=== PATIENT | male | born 1985 | race African-American/Black ===

== ENCOUNTER 2020-08-04 09:52 | Emergency (ER) | payer OTHER ==
[2020-08-04 10:01] VITALS: BP 143/92; PULSE 93; TEMP 98.3; BMI 35.5
--- NOTE | 2020-08-04 10:15 | PDOC ---
History of Present Illness - General Chief Complaint: Blood Sugar Problem Stated Complaint: RASH Time Seen by Provider: 08/04/20 10:15 Past History - Medical History Allergies/Adverse Reactions: Allergies Allergy/AdvReac Type Severity Reaction Status Date / Time No Known Allergies Allergy Verified 08/04/20 09:55 COPD: No - Psycho-Social/Smoking History Smoking History: Never smoked - Substance Abuse Hx (Audit-C & DAST Scrn) How often the patient has a drink containing alcohol: Never Score: In Men: 4 or > Positive; In Women: 3 or > Positive: 0 Screen Result (Pos requires Nsg. Audit-10AR): Negative In the last yr the pt used illegal drug/Rx for NonMed reason: No Score: Yes response is considered Positive: 0 Screen Result (Positive result requires Nsg. DAST-10): Negative *Physical Exam - Vital Signs Last Vital Signs Temp Pulse Resp BP Pulse Ox 98.3 F 93 H 18 143/92 98 08/04/20 09:56 08/04/20 09:56 08/04/20 09:56 08/04/20 09:56 08/04/20 09:56
[2020-08-04] MEDS ORDERED: SODIUM CHLORIDE 1,000 ML IV STA (10:17)
--- NOTE | 2020-08-04 10:29 | PDOC ---
History of Present Illness - General Chief Complaint: Blood Sugar Problem Stated Complaint: RASH Time Seen by Provider: 08/04/20 10:15 - History of Present Illness Initial Comments: 35 YOM no significant medical history presenting with groin rash since 2 days. Patient reports he has had multiple instances of same rash over last few years. Has treated with lotrimin with varying success. Rash is primarily on inner thighs and penis, urethra/ tip of penis feel tight. Patient presented to urgent care for these symptoms this AM, had BG performed to 400s, presented to ED for eval. Reports increased thirst and frequency of urination for past weeks. Denies cp,sob, n/v/d, abdominal pain, fever or chills. Constitutional: No Weight Change, No Fever, No Chills, No Night Sweats, No Fatigue, No Malaise ENT/Mouth: No Hearing Changes, No Ear Pain, No Nasal Congestion, No Sinus Pain, No Hoarseness, No sore throat, No Rhinorrhea, No Swallowing Difficulty Eyes: No Eye Pain, No Swelling, No Redness, No Foreign Body, No Discharge, No Vision Changes Cardiovascular: No Chest Pain, No SOB, No PND, No Dyspnea on Exertion, No Orthopnea, No Claudication, No Edema, No Palpitations Respiratory: No Cough, No Sputum, No Wheezing, No Smoke Exposure, No Dyspnea Gastrointestinal: No Nausea, No Vomiting, No Diarrhea, No Constipation, No Pain, No Heartburn, No Anorexia, No Dysphagia, No Hematochezia, No Melena, No Flatulence, No Jaundice Genitourinary: No Dysmenorrhea, No DUB, No Dyspareunia, No Dysuria, + Urinary Frequency, No Hematuria, No Urinary Incontinence, No Urgency, No Flank Pain, No Urinary Flow Changes, No Hesitancy Musculoskeletal: No Arthralgias, No Myalgias, No Joint Swelling, No Joint Stiffness, No Back Pain, No Neck Pain, No Injury History Skin: No Skin Lesions, No Pruritis, No Hair Changes, No Breast/Skin Changes, No Nipple Discharge Neuro: No Weakness, No Numbness, No Paresthesias, No Loss of Consciousness, No Syncope, No Dizziness, No Headache, No Coordination Changes, No Recent Falls Psych: No Anxiety/Panic, No Depression, No Insomnia, No Personality Changes, No Delusions, No Rumination, No SI/HI/AH/VH, No Social Issues, No Memory Changes, No Violence/Abuse Hx., No Eating Concerns Heme/Lymph: No Bruising, No Bleeding, No Transfusions History, No Lymphadenopathy Endocrine: No Polyuria, No Polydipsia, No Temperature Intolerance Past History - Medical History Allergies/Adverse Reactions: Allergies Allergy/AdvReac Type Severity Reaction Status Date / Time No Known Allergies Allergy Verified 08/04/20 09:55 Home Medications: Ambulatory Orders Clotrimazole 1 applic TP BID #1 bottle 08/04/20 Doxycycline Monohydrate [Mondoxyne Nl] 100 mg PO BID 7 Days #13 capsule 08/04/20 metFORMIN HCL [Glucophage -] 500 mg PO BID #14 tablet 08/04/20 COPD: No - Psycho-Social/Smoking History Smoking History: Never smoked - Substance Abuse Hx (Audit-C & DAST Scrn) How often the patient has a drink containing alcohol: Never Score: In Men: 4 or > Positive; In Women: 3 or > Positive: 0 Screen Result (Pos requires Nsg. Audit-10AR): Negative In the last yr the pt used illegal drug/Rx for NonMed reason: No Score: Yes response is considered Positive: 0 Screen Result (Positive result requires Nsg. DAST-10): Negative *Physical Exam - Vital Signs Last Vital Signs Temp Pulse Resp BP Pulse Ox 98.3 F 93 H 18 143/92 98 08/04/20 09:56 08/04/20 09:56 08/04/20 09:56 08/04/20 09:56 08/04/20 09:56 ED Treatment Course - LABORATORY CBC & Chemistry Diagram: 08/04/20 10:05 08/04/20 10:05 Medical Decision Making - Medical Decision Making 35 YOM with skin rash and bs in 400s - vitals wnl - exam reveals darkening of skin in groin bilaterally - will do cbc, cmp, beta hydroxy butyrate, ua, cxr, ekg reassess - labs and imaging wnl - will dc patient to home with abx, metformin, and antifungal - to follow up at PCP Discharge - Discharge Information Problems reviewed: Yes Clinical Impression/Diagnosis: Fungal infection Condition: Good Disposition: HOME - Admission No - Additional Discharge Information Prescriptions: Clotrimazole 1 applic TP BID #1 bottle metFORMIN HCL [Glucophage -] 500 mg PO BID #14 tablet Doxycycline Monohydrate [Mondoxyne Nl] 100 mg PO BID 7 Days #13 capsule - Follow up/Referral Referrals: [facility] [place] [facility] at [place] [Provider Group] - Patient Discharge Instructions Additional Instructions: You were seen in the hospital for a rash in the context of elevated blood sugar. You received labs and imaging both of which were unremarkable. Please follow up with your [facility] regarding your visit to the ER. If you experience chest pain, shortness of breath, vomiting, fever or chills or change in mental status please return to the ER. - Post Discharge Activity
[2020-08-04 11:14] LABS: PH,URINE 5.5 (5.0-8.0); URINE APPEARANCE CLEAR; URINE BILIRUBIN NEGATIVE (NEGATIVE); URINE COLOR YELLOW; URINE GLUCOSE (UA) 3+ (NEGATIVE); URINE KETONE 1+ (NEGATIVE); URINE LEUK ESTERASE NEGATIVE (NEGATIVE); URINE NITRITE NEGATIVE (NEGATIVE); URINE PROTEIN NEGATIVE (NEGATIVE); URINE UROBILINOGEN 0.2 mg/dL (0.2-1.0)
[2020-08-04 11:22] LABS: VENOUS BASE EXCESS -1.1 mmol/L (-2-2); VENOUS O2 SATURATION 46.8 % (70-80); VENOUS PCO2 49.7 mmHg (38-52); VENOUS PH 7.329 (7.310-7.410)
[2020-08-04 11:38] LABS: INR 1.02 (0.83-1.09)
[2020-08-04 11:40] LABS: ACTIVATED PTT 32.3 SECONDS (25.2-36.5)
[2020-08-04 11:56] LABS: BASO % 0.9 % (0-2.0); EOS % 4.5 % (0-4.5); HEMATOCRIT 42.5 % (35.4-49); HEMOGLOBIN 14.6 GM/dL (11.7-16.9); LYMPH % 32.6 % (8-40); MCH 28.8 pg (25.7-33.7); MCHC 34.3 g/dl (32.0-35.9); MEAN CELL VOLUME 83.8 fl (80-96); MEAN PLT VOLUME 8.7 fl (7.5-11.1); MONO % 6.7 % (3.8-10.2); NEUT % 55.3 % (42.8-82.8); PLATELET COUNT 281 K/MM3 (134-434); RBC 5.06 M/mm3 (4.00-5.60); RDW 13.3 % (11.9-15.9); WHITE BLOOD COUNT 4.8 K/mm3 (4.0-10.0)
[2020-08-04 11:57] LABS: ALBUMIN 4.4 g/dl (3.4-5.0); ALK PHOS 94 U/L (45-117); ANION GAP 7 MMOL/L (8-16); BLOOD UREA NITROGEN 15.2 mg/dL (7-18); CALCIUM 9.7 mg/dL (8.5-10.1); CHLORIDE 102 mmol/L (98-107); CO2 27 mmol/L (21-32); CREATININE 1.2 mg/dL (0.55-1.3); GLUCOSE,RANDOM 359 mg/dL (74-106); POTASSIUM 4.2 mmol/L (3.5-5.1); SGOT/AST 34 U/L (15-37); SGPT/ALT 53 U/L (13-61); SODIUM 137 mmol/L (136-145); TOT PROT 8.5 g/dl (6.4-8.2)
[2020-08-04] MEDS ORDERED: DOXYCYCLINE HYCLATE 100 MG CAPSULE PO ONE ×2 (12:37→13:17)
--- NOTE | 2020-08-04 12:48 | PDOC ---
Documentation entered by Nahun Hines SCRIBE, acting as scribe for Nestor Montanez MD. Nestor Montanez MD: This documentation has been prepared by the alexaibeDonny Alexis, SCRIBE, under my direction and personally reviewed by me in its entirety. I confirm that the documentation accurately reflects all work, treatment, procedures, and medical decision making performed by me. Attending Attestation - Resident Resident Name: RemingtonMikal hamilton - ED Attending Attestation I have performed the following: I have examined & evaluated the patient, The case was reviewed & discussed with the resident, I agree w/resident's findings & plan, Exceptions are as noted - HPI HPI: 08/04/20 11:07 The patient is a 35 year old male with no significant past medical history who presents to the emergency department, sent from Urgent Care, for evaluation of a blood glucose in the 400s that was discovered this morning at Urgent Care. The patient reports a rash on his inner thighs and penis associated with tightness of the urethra and tip of penis, which prompted his presentation to Urgent Care. He endorses increased urinary frequency and increased thirst that began a few weeks ago. The patient notes using Lotrimin to minimal relief. The patient endorses a history of similar symptoms. The patient denies chest/abdominal/back pain, cough, and shortness of breath. Denies fever, chills, nausea, vomiting, and/or any GI symptoms. Denies any other symptoms. Allergies: NKA Social Hx: None reported Surgical Hx: None reported PCP: Dr. Green - Physicial Exam PE: 08/04/20 10:26 Vitals: Triage vital signs reviewed General Appearance: No acute distress, well nourished, well developed Head: Atraumatic Eyes: Pupils equal reactive round, extraocular movement intact Cardiac: Regular rate and rhythm, no murmurs, no rubs, no gallops Lungs: Clear to auscultation bilateral, good air movement bilaterally Abdomen: Soft, nondistended, normal bowel sounds, nontender to palpation Extremities: Full range of motion to all extremities, no cyanosis, clubbing, or edema Skin: Slight rash to bilateral inner thighs no extension to perineum testicles groin Psych: Normal mood, normal affect - Medical Decision Making 08/04/20 12:47 Patient 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 Sent to the ED today because urgent care did a fingerstick which demonstrated elevated glucose level No fever no white count no anion gap non-DKA well-appearing no apparent distress low suspicion for Elizabeth's gangrene no free air on bedside ultrasound We will treat with doxycycline antifungal cream patient started on metformin arrange for patient to follow-up in our clinic this week Findings, need for follow-up and strict return instructions discussed with patient. Discharge - Discharge Information Problems reviewed: Yes Clinical Impression/Diagnosis: Fungal infection Condition: Good Disposition: HOME - Additional Discharge Information Prescriptions: Clotrimazole 1 applic TP BID #1 bottle metFORMIN HCL [Glucophage -] 500 mg PO BID #14 tablet Doxycycline Monohydrate [Mondoxyne Nl] 100 mg PO BID 7 Days #13 capsule - Follow up/Referral Referrals: [facility] [place] [facility] at [place] [Provider Group] - Patient Discharge Instructions Additional Instructions: You were seen in the hospital for a rash in the context of elevated blood sugar. You received labs and imaging both of which were unremarkable. Please follow up with your [facility] regarding your visit to the ER. If you experience chest pain, shortness of breath, vomiting, fever or chills or change in mental status please return to the ER. - Post Discharge Activity
--- NOTE | 2020-08-04 16:55 | EKG ---
Test Reason : Blood Pressure : / mmHG Vent. Rate : 087 BPM Atrial Rate : 087 BPM P-R Int : 170 ms QRS Dur : 092 ms QT Int : 362 ms P-R-T Axes : 057 043 022 degrees QTc Int : 435 ms NORMAL SINUS RHYTHM POSSIBLE LEFT ATRIAL ENLARGEMENT NONSPECIFIC ST ABNORMALITY ABNORMAL ECG NO PREVIOUS ECGS AVAILABLE Confirmed by CLAUDIO MARCANO, NAVI ([id number]) on 08/04/2020 4:54:50 PM Referred By: Confirmed By:NAVI SNYDER MD
== END 2020-08-04 13:32 | disposition home or self-care (01) ==
LOC: JER 09:52
PROC: 3E0337Z Introduction of Electrolytic and Water Balance Substance into Peripheral Vein, Percutaneous Approach (ICD-10-PCS; principal; 2020-08-04)
DX: B35.9 Dermatophytosis, unspecified (principal)
CPT/HCPCS: 36415; 71045-TC-FY; 80053; 81003; 82010; 82803; 83605; 83735; 84484; 85025; 85610; 85730; 86850; 86900; 86901; 87040; 87086; 93005; 93010; 99285-25

== ENCOUNTER 2023-01-13 16:57 | Emergency (ER) | payer OTHER ==
[2023-01-13 17:10] VITALS: BP 199/105; PULSE 97; RESP 16; TEMP 99.4; BMI 36.8
[2023-01-13] MEDS ORDERED: ALBUTEROL SO4 2.5/IPRATROPIUM 0.5 INH SOL 3 ML VIAL.NEB. NEB ONE ×2 (17:40→17:44)
[2023-01-13 18:15] LABS: THROAT:GRP A STREP NOT DETECTED (NOTDETECTED)
== END 2023-01-13 19:19 | disposition home or self-care (01) ==
LOC: JERFT 16:57
PROC: 3E0F7GC Introduction of Other Therapeutic Substance into Respiratory Tract, Via Natural or Artificial Opening (ICD-10-PCS; principal; 2023-01-13)
DX: J45.21 Mild intermittent asthma with (acute) exacerbation (principal)
CPT/HCPCS: 0241U-QW; 71046-TC-FY; 87651; 99284-25